=== PATIENT | male | born 1935 | race Asian ===

== ENCOUNTER 2019-08-01 18:47 | Inpatient (IN) | payer MEDICARE, MEDICAID ==
[2019-08-01 21:59] VITALS: BP 121/51
[2019-08-01] MEDS ORDERED: Magnesium Hydroxide (MOM) 30 mL UDC PO PRN (22:00)
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
--- NOTE | 2019-08-03 08:23 | Progress Notes ---
DATE: SUBJECTIVE: Chart reviewed and the patient interviewed. Also discussed the patient's condition with the staff and reviewed records and labs. The patient is still extremely agitated and the patient is still in irritable and angry mood. The patient also is still yelling and screaming in the Thai language, was difficult to understand. The patient also is still pacing up and down the unit in angry mood and gets aggressive and agitated with peers and with staff. Otherwise, the patient is taking Risperdal with no side effects. ASSESSMENT: The patient is still agitated and aggressive and still can be dangerous to others and also considered to be gravely disabled with his confusion. TREATMENT PLAN: Continue monitoring his behavior and his condition closely. Also, we will increase Risperdal to 0.5 mg twice a day and we will continue to follow up closely. JOB# [id number]
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
--- NOTE | 2019-08-05 18:57 | Progress Notes ---
DATE: 08/05/2019 SUBJECTIVE: Chart was reviewed and the patient interviewed. Also discussed the patient's condition with the staff and reviewed records and labs. The patient is still yelling and screaming and easily irritable. The patient also is still paranoid and he is still easily agitated. The patient also still mumbles in Indonesian language and difficult to follow simple instructions. The patient also has been refusing to take medications and language barrier is an issue. Otherwise, the patient is sleeping slightly better. ASSESSMENT: The patient is still psychotic and agitated. TREATMENT PLAN: Continue monitoring his behavior and condition closely and continue adjusting psychotropic medications and work on his compliance with treatment. JOB# [id number]
--- NOTE | 2019-08-05 21:32 | Progress Notes ---
DATE: 08/05/2019 SUBJECTIVE: The patient seen and examined. The patient is lying in the bed. The patient does not provide a meaningful history. Discussed with nursing staff about their concern. PHYSICAL EXAMINATION: VITAL SIGNS: Temperature 97.6, pulse is 77, respiratory rate 18, blood pressure 120/54. HEENT: No facial asymmetry. NECK: Supple, no JVD. HEART: Regular. CHEST AND LUNGS: Equal in expansion, no wheezing. ABDOMEN: Soft. No guarding, no rigidity. Bowel sounds are present. No palpable mass. EXTREMITIES: No edema. NEUROLOGIC: Alert, awake, follows commands. Decreased power throughout the upper and lower extremity noted. CLINICAL IMPRESSION: 1. Hypertension. 2. Dementia. 3. Psychiatric disorder. 4. Degenerative joint disease. 5. Cerebral ataxia. 6. Fall risk. 7. Decline in self-care and mobility. PLAN: 1. Monitor blood pressure. 2. Psych followup. 3. Fall precautions. 4. General nursing care. 5. Monitor blood pressure. 6. __. 7. Chronic disease management. 8. Medication management. 9. Symptoms management. 10. Care plan reviewed and discussed with staff. JOB# [id number]
--- NOTE | 2019-08-05 22:52 | Progress Notes ---
DATE: 08/04/2019 SUBJECTIVE: Chart reviewed and the patient interviewed. Also discussed the patient's condition with the staff and reviewed records and labs. The patient is still agitated and restless. The patient also is still yelling and screaming for no reasons. He also is still in angry mood and banging on a Layla chair and even on the edge of his bed banging on the side rails. He also is still in angry mood and had difficulty redirecting him. Otherwise, the patient is compliant with taking his medications with no side effects of medications. ASSESSMENT: The patient is still psychotic and agitated. TREATMENT PLAN: Continue to work on behavioral modification and also Risperdal was increased to 0.5 mg twice a day and continue adjusting the dose. Also, continue to work on his impulsivity and his anger. JOB# [id number]
--- NOTE | 2019-08-06 19:02 | Progress Notes ---
DATE: SUBJECTIVE: Chart was reviewed and the patient interviewed. Also discussed the patient's condition with the staff and reviewed records and labs. The patient is still hyperverbal and is still yelling and screaming in [place] language with words difficult to understand. The patient also is still easily agitated and easily irritable and have difficulty communicating because of language barrier. The patient also still has mood swings and at times calm and others he is angry and irritable. Also seems to be confused. The patient is also refusing to take medications for no apparent reason. ASSESSMENT: The patient is still confused and agitated. TREATMENT PLAN: Continue to monitor behavior and condition closely. Also, continue working on his irritability and poor impulse control and adjusting psychotropic medications. [facility]# [id number]
--- NOTE | 2019-08-07 11:57 | Diagnostic Imaging Report ---
Portable chest x-ray HISTORY: Fever The heart appears enlarged. Atherosclerotic calcification seen in the aorta. A linear density is seen within the right perihilar region. The finding may be associated with scarring or subsegmental atelectasis. No other focal processes. Old right rib fractures are seen. IMPRESSION: 1. Linear density within the right perihilar region which may be associated with subsegmental atelectasis or scarring. 2. Cardiomegaly with atherosclerotic vascular changes 3. Old right rib fractures
--- NOTE | 2019-08-08 00:48 | Progress Notes ---
DATE: 08/07/2019 SUBJECTIVE: The patient seen and examined. The patient spiked fever yesterday 101, this morning is afebrile. The patient speaks only Japanese as well as the patient has advanced age, unable to get meaningful history. Discussion with nursing staff, there was no apparent coughing or any hematuria. The patient is lying comfortably, though the patient unable to eat fairly well. PHYSICAL EXAMINATION: VITAL SIGNS: Temperature 98.9, pulse is 80, respiratory rate 18, blood pressure 114/64. HEENT: No facial asymmetry. Oropharynx is noncongested. Poor dentition noted. NECK: Supple, no JVD. HEART: Both heart sounds are regular. CHEST AND LUNGS: Equal in expansion, no expiratory wheezing. ABDOMEN: Soft. Bowel sounds present. No palpable mass. EXTREMITIES: No edema, no calf tenderness. MEDICATIONS: Medication admission record has been reviewed. CLINICAL IMPRESSION: 1. New onset of fever, etiology needs to determine. No apparent source. Currently, the patient is afebrile. Workup has been ordered. 2. Hypertension. 3. Psychiatric disorder. 4. Dementia. 5. History of craniotomy and brain tumor removal. 6. High risk for fall. PLAN: 1. CBC, CMP, urinalysis and chest x-ray has been requested in order to evaluate the patient's fever. 2. We will hold antibiotic since the source is not clear. 3. Psych medication and psych followup. 4. Monitor blood pressure. 5. Continue antihypertensive medicine. 6. Fall precautions. 7. General nursing care. 8. We will give further recommendations once the patient's lab data are available. JOB# [id number]
--- NOTE | 2019-08-08 09:51 | Progress Notes ---
DATE: 08/07/2019 SUBJECTIVE: Chart reviewed and the patient interviewed. Also discussed the patient's condition with the staff and reviewed records and labs. The patient still has periods of agitation and irritability, but seems to be slightly calmer than before. Also, yesterday, the patient had low-grade fever, but it is getting better today after he took Tylenol and his temperature today is 98.9. The patient also still needs redirections and still has problem with language barrier. Otherwise, the patient is compliant with taking his medications with no side effects of medications. ASSESSMENT: The patient is still agitated and needs lots of redirections. TREATMENT PLAN: Continue to monitor behavior and condition closely. Also, continue adjusting psychotropic medications and work on his behavior. JOB# [id number]
[2019-08-08] MEDS: Sulfamethoxazole/TMP 800/160mg Tab PO SCH (17:07)
--- NOTE | 2019-08-08 18:12 | Progress Notes ---
DATE: 08/08/2019 SUBJECTIVE: The patient seen and examined. The patient is lying in the bed. The patient does not provide a meaningful history. Discussed with nursing staff about their concerns. The patient continues to remain afebrile. CBC, CMP, chest x-ray has been requested along with urinalysis, which I do not have for my review. PHYSICAL EXAMINATION: VITAL SIGNS: Temperature 98.8, pulse is 100, respiratory rate 18, blood pressure 119/70. HEENT: Poor dentition. No oral lesions. NECK: Supple, no JVD, no lymphadenopathy or thyromegaly. HEART: Both heart sounds are regular. CHEST AND LUNGS: Equal in expansion, no expiratory wheezing. ABDOMEN: Soft. EXTREMITIES: No edema. CLINICAL IMPRESSION: 1. Fever, currently remained afebrile. Workup has been ordered. Reports are unavailable. 2. Psychotic disorder. 3. History of cerebrovascular accident. 4. History of cerebellar tumor. 5. Hypertension. 6. Fall risk. 7. Ataxia. 8. Dementia. 9. History of craniotomy for cerebellar tumor removal. PLAN: Await for CBC, CMP, urinalysis. Chest x-ray is not indicative of pneumonitis. The patient remained afebrile. We will hold treatment right now since we do not have any clear-cut source of the fever and the patient is currently afebrile. Continue to provide antihypertensive medicine with fall precautions, general nursing care, nutritional support. We will continue to follow this patient during the stay in the hospital. JOB# [id number]
--- NOTE | 2019-08-08 22:58 | Progress Notes ---
DATE: 08/08/2019 DATE OF SERVICE: 08/08/2019 Chart reviewed and the patient interviewed. Also discussed the patient's condition with the staff and reviewed records and labs. The patient is still easily agitated and easily irritable. The patient last night slept only for 4 hours, then woke up calling family members name, waking up other patients. He is still restless and he still needs lots of redirections and easily agitated. Also, still having difficulty following with staff directions, which might be because of language barrier. The patient also still disheveled and still needs prompt instructions regarding his ADLs. Otherwise, the patient seems to be more compliant with taking his medications with no side effects. ASSESSMENT: The patient is still agitated and aggressive, but seems to be less than before. TREATMENT PLAN: Continue Risperdal same dose and continue adjusting medications and working on behavioral modification. JOB# [id number]
[2019-08-09] MEDS: Sulfamethoxazole/TMP 800/160mg Tab PO SCH ×2 (08:54→16:24)
--- NOTE | 2019-08-09 23:04 | Progress Notes ---
DATE: 08/09/2019 SUBJECTIVE: The patient seen and examined. The patient is lying in the bed. The patient is currently sedated because the patient was agitated, which did require the patient to have Ativan and Ambien. The patient is currently placed on p.o. antibiotic for UTI. OBJECTIVE: VITAL SIGNS: Temperature 99.5, pulse 91, respiratory rate 19, blood pressure 117/60. HEENT: No facial asymmetry. NECK: Supple. HEART: Regular. LUNGS: Clear. ABDOMEN: Soft. EXTREMITIES: No edema. CLINICAL IMPRESSION: 1. Urinary tract infection. 2. Fever. 3. Psychotic disorder. 4. Dementia. 5. Degenerative joint disease. 6. Hypertension. 7. Fall risk. PLAN: 1. Continue antibiotic as prescribed. 2. Monitor blood pressure. 3. Fall precautions. 4. Nutritional support. 5. General nursing care. 6. Follow lab. 7. We will continue to follow this patient during the stay in the hospital. Care plan has been reviewed and discussed with staff. JOB# [id number]
--- NOTE | 2019-08-09 23:04 | Progress Notes ---
DATE: 08/09/2019 DATE OF SERVICE: 08/09/2019 SUBJECTIVE: Chart was reviewed and the patient interviewed. Also discussed the patient's condition with the staff and reviewed records and labs. The patient seems to be slightly calmer than before. The patient is less irritable and less agitated, but he is still demanding and is still confused and hyperverbal and hypertalkative. The patient was still having severe mood swings and have difficulty following directions, which most probably because of language barrier. Otherwise, the patient is compliant with taking his medications with no side effects of medications. ASSESSMENT: The patient is still confused and agitated, but showing some improvement. TREATMENT PLAN: We will increase Risperdal to 1 mg twice a day and we will add trazodone in a dose of 25 mg at bedtime. Also, continue to monitor behavior and condition closely. Also, working on behavioral modification. Discussed with program administrator of [facility] the possibility of patient returning back there and they are going to evaluate the patient when closer to his completion of treatment. JOB# [id number]
--- NOTE | 2019-08-10 07:31 | Progress Notes ---
DATE: 08/10/2019 SUBJECTIVE: Chart reviewed and the patient interviewed. Also discussed the patient's condition with the staff and reviewed records and labs. The patient is still confused, but he seems to be less agitated and less irritable. The patient also seems to be slightly easier to redirect him. The patient also slept better last night since I added trazodone to his medications. He also is compliant with taking his medications with no side effects of medications. ASSESSMENT: The patient is still confused, but seems to be less agitated. TREATMENT PLAN: Continue to monitor behavior and condition closely. Also, working on behavior modification as well as adjusting psychotropic medications. JOB# [id number]
[2019-08-10] MEDS: Sulfamethoxazole/TMP 800/160mg Tab PO SCH ×2 (08:55→17:11)
--- NOTE | 2019-08-10 10:12 | Progress Notes ---
DATE: 08/10/2019 SUBJECTIVE: The patient seen and examined. The patient is lying in the bed. Discussed with nursing staff. The patient had 100% of his breakfast. The patient becomes more agitated in the afternoon. The patient currently does not provide a meaningful history. OBJECTIVE: VITAL SIGNS: Temperature 97.4, pulse 74, respiratory rate 18, blood pressure 115/62. HEENT: Poor dentition. NECK: Supple. No JVD. HEART: Regular. CHEST AND LUNGS: Equal in expansion. No expiratory wheezing. ABDOMEN: Soft. Bowel sounds present. No palpable masses. EXTREMITIES: No edema. NEUROLOGIC: Alert, awake, following commands. MEDICATIONS: Admission record reviewed. CLINICAL IMPRESSION 1. Urinary tract infection. 2. Fever, resolved. 3. Psychiatric disorder. 4. Hypertension. 5. Dementia. 6. High risk for fall. 7. Degenerative joint disease. 8. Debility. 9. Decline in self-care and mobility. PLAN: 1. P.o. antibiotic for urinary tract infection. 2. Monitor vital signs. 3. Antihypertensive medicine. 4. Psych followup. 5. General nursing care. 6. Fall precaution. 7. Nutritional support. 8. Care plan reviewed and discussed with staff. JOB# [id number]
[2019-08-11] MEDS: Sulfamethoxazole/TMP 800/160mg Tab PO SCH ×2 (09:18→17:18)
--- NOTE | 2019-08-11 20:02 | Progress Notes ---
DATE: 08/11/2019 SUBJECTIVE: The patient seen and examined. The patient is lying in the bed. Discussed with nursing staff about their consent. The patient has remained hemodynamically stable. The patient is afebrile. The patient is able to eat. PHYSICAL EXAMINATION: VITAL SIGNS: Temperature 97, pulse is 77, respiratory rate 18, blood pressure 115/72. HEENT: No facial asymmetry. Poor dentition noted. NECK: Supple, no JVD. HEART: Regular. CHEST AND LUNGS: Equal in expansion, no expiratory wheezing. ABDOMEN: Soft. Bowel sounds present. No palpable masses. EXTREMITIES: No edema. NEUROLOGIC: Alert, awake, follows commands. Decreased power throughout the upper and lower extremity noted. CLINICAL IMPRESSION: 1. Urinary tract infection. 2. Hypertension. 3. Fall risk. 4. Status post cerebellar tumor removal. 5. Gait disturbances. 6. Psychotic disorder. 7. Degenerative joint disease. 8. High risk for fall. PLAN: 1. P.o. antibiotic as prescribed. 2. Psych medication. 3. Monitor blood pressure. 4. Fall precautions. 5. General nursing care. 6. Symptoms management. 7. Medication management. We will continue to follow this patient during the stay in the hospital. JOB# [id number]
[2019-08-12] MEDS: Sulfamethoxazole/TMP 800/160mg Tab PO SCH ×2 (10:00→17:16)
--- NOTE | 2019-08-12 21:16 | Progress Notes ---
DATE: 08/12/2019 SUBJECTIVE: The patient seen and examined. The patient is lying in the bed. Discussed with staff about their concerns. The patient was able to eat fairly well. The patient does not have any chest pain or any shortness of breath though the patient does not provide a meaningful history. The patient was able to eat 100% of his lunch and breakfast. PHYSICAL EXAMINATION: VITAL SIGNS: Temperature 98, pulse is 78, respiratory rate was 18, blood pressure 130/70. HEENT: No facial asymmetry. No oral lesions noted. NECK: Supple, no JVD, no lymphadenopathy or thyromegaly. HEART: Regular. CHEST AND LUNGS: Equal in expansion with expiratory wheezing. ABDOMEN: Soft. Bowel sounds present. No palpable mass. EXTREMITIES: No edema. NEUROLOGIC: Alert, awake, follows command. DIAGNOSTIC DATA: MAR is reviewed. CLINICAL IMPRESSION: 1. Urinary tract infection, on p.o. antibiotic. 2. Hypertension. 3. High risk for fall. 4. Status post cerebellar tumor removal. 5. Dementia. 6. Degenerative joint disease. 7. Psychotic disorder. PLAN: 1. Continue the current antibiotic for urinary tract infection. 2. Provide fall precautions. 3. General nursing care. 4. Psych medication and psych followup. 5. Continue current treatment plan as prescribed. 6. Symptoms management. 7. Medication management. 8. Care plan reviewed and discussed with staff. JOB# [id number]
[2019-08-13] MEDS: Sulfamethoxazole/TMP 800/160mg Tab PO SCH ×2 (09:05→16:57)
--- NOTE | 2019-08-13 15:48 | Progress Notes ---
DATE: 08/13/2019 SUBJECTIVE: The patient seen and examined. The patient is sitting in a Layla chair. Discussed with nursing staff about their concerns. The patient was able to eat 50% of his meal today. The patient still gets restless at times. Unable to get history from the patient. PHYSICAL EXAMINATION: VITAL SIGNS: Temperature 97, pulse is 75, respiratory rate 18, blood pressure 124/60. Medication admission record is reviewed. HEENT: No facial asymmetry. Poor dentition noted. NECK: Supple, no JVD. HEART: Regular. CHEST AND LUNGS: Equal in expansion, no expiratory wheezing. ABDOMEN: Soft. Bowel sounds present. No palpable mass. EXTREMITIES: No edema. NEUROLOGIC: Alert, awake, follows commands. Decreased power throughout the upper and lower extremities noted. CLINICAL IMPRESSION: 1. Complicated urinary tract infection, on p.o. antibiotic. 2. Fever, resolved. 3. Hypertension. 4. High risk for fall. 5. Status post cerebellar tumor removal. 6. Dementia. 7. Degenerative joint disease. 8. Debility. 9. Fall risk. 10. Decline in self-care, mobility. PLAN: 1. Psych medication. 2. P.o. antibiotic. 3. Fall precaution. 4. General nursing care. 5. PT, OT. 6. We will continue to follow this patient during the stay in the hospital. 7. Care plan reviewed and discussed with staff. JOB# [id number]
--- NOTE | 2019-08-13 17:21 | Progress Notes ---
DATE: 08/11/2019 SUBJECTIVE: Chart was reviewed and the patient interviewed. Also, discussed the patient's condition with the staff and reviewed records and labs. The patient seems to be slightly calmer, but he is still confused and is still agitated. The patient also is still restless, but easy to redirect him. The patient at times wants to be left alone and patient seems to be more depressed lately. Otherwise, the patient is compliant with taking his medications with no side effects of medications. ASSESSMENT: The patient is still confused and is still psychotic. TREATMENT PLAN: Continue to monitor behavior and condition and continue working on behavioral modification. Also, discussed with the defense travel administrator of the facility where the patient lived the possibility of patient returning to the facility and they will interview the patient to assess the appropriateness of him going back there. At the same time, continue to monitor medications and condition closely and continue to follow up. JOB# [id number]
--- NOTE | 2019-08-14 02:47 | Psych Progress Note ---
Psych Progress Note - Intro Date of Progress Note: 08/12/19 - Assessment Assessment: Patient interviewed, case discussed with staff, chart and records were reviewed. Patient is in bed talking to unseen others. Looking around the room and rambling constantly. Cannot redirect patient for interview. Poor eye contact, no cooperation. Pre staff, no agitation. No med side effects noted. - Vitals, I&O Vitals: Vital Signs - 24 hr 08/13/19 08/13/19 08/13/19 06:20 09:06 16:57 Temp 97.0 F HR 75 75 83 RR 20 BP 124/60 124/60 114/63 O2 Sat % 96 08/13/19 08/13/19 17:54 20:35 Temp 97.8 F 98.1 F HR 83 94 RR 20 20 BP 114/63 101/63 O2 Sat % 96 96 - Objective Psych Objective: presents anxious restless in bed with poor eye contact, disorganized, rambling incoherent speech, blunted, internally preoccupied, A&O x 1, insight is impaired. - Plan Plan: cont med titration - Review of Relevant Data Review of Relevant Data: I have reviewed the following items and time nena (where applicable) has been applied. - Medications Current Medications: Current Medications Acetaminophen (Tylenol) 650 mg PO Q4HR PRN PRN Reason: Mild Pain (Scale 1-3) Stop: 09/30/19 21:59 Last Admin: 08/07/19 22:20 Dose: 650 mg Acetaminophen (Tylenol) 650 mg PO Q4H PRN PRN Reason: TEMP ABOVE 100 Stop: 10/06/19 14:55 Last Admin: 08/07/19 16:54 Dose: 650 mg Amlodipine Besylate (Norvasc) 5 mg PO BID [facility] Stop: 10/01/19 08:59 Last Admin: 08/13/19 16:57 Dose: 5 mg Cyanocobalamin (Vitamin B12) 500 mcg PO DAILY [facility] Stop: 10/01/19 08:59 Last Admin: 08/13/19 09:05 Dose: 500 mcg Lorazepam (Ativan) 0.5 mg PO Q4HR PRN; Protocol PRN Reason: Anxiety Stop: 08/31/19 21:59 Last Admin: 08/13/19 20:46 Dose: 0.5 mg Magnesium Hydroxide (Milk Of Magnesia) 30 ml PO HS PRN PRN Reason: Constipation Pyridoxine HCl (Vitamin B6) 100 mg PO DAILY [facility] Stop: 10/01/19 08:59 Last Admin: 08/13/19 09:05 Dose: 100 mg Risperidone (Risperdal) 1 mg PO BID [facility]; Protocol Stop: 10/08/19 08:59 Last Admin: 08/13/19 16:57 Dose: 1 mg Thiamine HCl (Vitamin B1) 100 mg PO DAILY [facility] Stop: 10/01/19 08:59 Last Admin: 08/13/19 09:05 Dose: 100 mg Trazodone HCl (Desyrel) 25 mg PO HS [facility]; Protocol Stop: 10/08/19 20:59 Last Admin: 08/13/19 20:46 Dose: 25 mg Trimethoprim/Sulfamethoxazole (Bactrim Ds) 1 tab PO BID [facility] Stop: 08/15/19 16:59 Last Admin: 08/13/19 16:57 Dose: 1 tab Zolpidem Tartrate (Ambien) 5 mg PO HS PRN PRN Reason: Insomnia Stop: 09/30/19 21:59 Last Admin: 08/09/19 00:14 Dose: 5 mg
--- NOTE | 2019-08-14 02:48 | Psych Progress Note ---
Psych Progress Note - Intro Date of Progress Note: 08/13/19 - Assessment Assessment: Patient interviewed, case discussed with staff, chart and records were reviewed. Patient is relatively unchanged from prior evaluation. Patient is in bed talking to unseen others. Looking around the room and rambling constantly. Appears less anxious and less restless. Cannot redirect patient for interview. Poor eye contact, no cooperation. Pre staff, no agitation. No med side effects noted. - Vitals, I&O Vitals: Vital Signs - 24 hr 08/13/19 08/13/19 08/13/19 06:20 09:06 16:57 Temp 97.0 F HR 75 75 83 RR 20 BP 124/60 124/60 114/63 O2 Sat % 96 08/13/19 08/13/19 17:54 20:35 Temp 97.8 F 98.1 F HR 83 94 RR 20 20 BP 114/63 101/63 O2 Sat % 96 96 - Objective Psych Objective: presents anxious restless in bed with poor eye contact, disorganized, rambling incoherent speech, blunted, internally preoccupied, A&O x 1, insight is impaired. - Plan Plan: cont med titration - Review of Relevant Data Review of Relevant Data: I have reviewed the following items and time nena (where applicable) has been applied. - Medications Current Medications: Current Medications Acetaminophen (Tylenol) 650 mg PO Q4HR PRN PRN Reason: Mild Pain (Scale 1-3) Stop: 09/30/19 21:59 Last Admin: 08/07/19 22:20 Dose: 650 mg Acetaminophen (Tylenol) 650 mg PO Q4H PRN PRN Reason: TEMP ABOVE 100 Stop: 10/06/19 14:55 Last Admin: 08/07/19 16:54 Dose: 650 mg Amlodipine Besylate (Norvasc) 5 mg PO BID [facility] Stop: 10/01/19 08:59 Last Admin: 08/13/19 16:57 Dose: 5 mg Cyanocobalamin (Vitamin B12) 500 mcg PO DAILY [facility] Stop: 10/01/19 08:59 Last Admin: 08/13/19 09:05 Dose: 500 mcg Lorazepam (Ativan) 0.5 mg PO Q4HR PRN; Protocol PRN Reason: Anxiety Stop: 08/31/19 21:59 Last Admin: 11/24/19 20:46 Dose: 0.5 mg Magnesium Hydroxide (Milk Of Magnesia) 30 ml PO HS PRN PRN Reason: Constipation Pyridoxine HCl (Vitamin B6) 100 mg PO DAILY [facility] Stop: 10/01/19 08:59 Last Admin: 08/13/19 09:05 Dose: 100 mg Risperidone (Risperdal) 1 mg PO BID [facility]; Protocol Stop: 10/08/19 08:59 Last Admin: 08/13/19 16:57 Dose: 1 mg Thiamine HCl (Vitamin B1) 100 mg PO DAILY [facility] Stop: 10/01/19 08:59 Last Admin: 08/13/19 09:05 Dose: 100 mg Trazodone HCl (Desyrel) 25 mg PO HS [facility]; Protocol Stop: 10/08/19 20:59 Last Admin: 08/13/19 20:46 Dose: 25 mg Trimethoprim/Sulfamethoxazole (Bactrim Ds) 1 tab PO BID [facility] Stop: 08/15/19 16:59 Last Admin: 08/13/19 16:57 Dose: 1 tab Zolpidem Tartrate (Ambien) 5 mg PO HS PRN PRN Reason: Insomnia Stop: 09/30/19 21:59 Last Admin: 08/09/19 00:14 Dose: 5 mg
[2019-08-14] MEDS: Sulfamethoxazole/TMP 800/160mg Tab PO SCH ×2 (08:27→16:40)
--- NOTE | 2019-08-14 19:44 | Progress Notes ---
DATE: 08/14/2019 SUBJECTIVE: The patient was seen and examined. The patient is lying in the bed. No new event noted by nursing staff. PHYSICAL EXAMINATION: VITAL SIGNS: Temperature 97.6, pulse is 74, respiratory rate 20, and blood pressure 110/60. HEENT: No facial asymmetry. Poor dentition. NECK: Supple. No JVD. HEART: Regular. CHEST AND LUNGS: Equal in expansion. No expiratory wheezing. ABDOMEN: Soft. Bowel sounds present. No palpable mass. EXTREMITIES: No edema. CLINICAL IMPRESSION: 1. Complicated urinary tract infection. 2. Hypertension. 3. Fall risk. 4. Degenerative joint disease. 5. Status post cerebellar tumor removal. 6. Decline in self-care. PLAN: 1. P.o. antibiotic. 2. Fall precautions. 3. Monitor blood pressure. 4. General nursing care. 5. Psych medication. 6. Psych followup. 7. Care plan reviewed and discussed with staff. JOB# [id number]
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
[2019-08-15] MEDS: Sulfamethoxazole/TMP 800/160mg Tab PO SCH (08:41)
--- NOTE | 2019-08-15 11:19 | Progress Notes ---
DATE: PATIENT IDENTIFICATION: An 84-year-old male. SUBJECTIVE: The patient seen and examined. The patient speaks Sami only. Discussed with the patient's daughter about the care plan and the patient's daughter requesting this patient to be discharged. I did discuss with her that she should talk to psychiatrist and someone on the primary at the psych facility. The patient was able to eat around 60-70% of his breakfast. PHYSICAL EXAMINATION: VITAL SIGNS: Temperature 97.6, pulse 84, respiratory rate is 20, blood pressure 100/54. HEENT: No facial asymmetry. NECK: Supple, no JVD. HEART: Regular. CHEST AND LUNGS: Equal in expansion, no expiratory wheezing. ABDOMEN: Soft. Bowel sounds are present. No palpable mass. EXTREMITIES: No edema. NEUROLOGIC: The patient is alert, awake, follows commands. No gross neuro deficits noted. CLINICAL IMPRESSION: 1. Hypertension, currently running low normal. 2. Psychotic disorder. 3. Dementia. 4. Degenerative joint disease. 5. History of cerebellar tumor removal. 6. Decline in self-care, mobility. PLAN: In the view of his low blood pressure, we will bring down his Norvasc to 5 mg daily. Continue to monitor blood pressure, fall precautions, general nursing care along with psych medication and psych followup. Care plan has been reviewed and discussed with staff. JOB# [id number]
--- NOTE | 2019-08-16 09:54 | Progress Notes ---
DATE: SUBJECTIVE: Chart was reviewed and the patient interviewed. Also discussed the patient's condition with the staff, and reviewed records and labs. The patient is still suspicious and is still paranoid, but less agitated and less irritable. The patient also is still confused and needs lots of redirections. He also still has difficulty following directions at times. Otherwise, decreased yelling and screaming. Also, is compliant with taking medications with no side effects. I discussed with the configuration management administrator of [facility], where the patient lives, the patient's discharge plans and waiting for [facility] to evaluate the patient to decide if they will take him back or we will need to place him somewhere else. ASSESSMENT: The patient is still confused, but seems to be less agitated. TREATMENT PLAN: Continue to monitor behavior and condition closely. Also, continue adjusting psychotropic medications and work on discharge plans. JOB# [id number]
--- NOTE | 2019-08-16 20:24 | Progress Notes ---
DATE: SUBJECTIVE: Chart was reviewed and the patient interviewed. Also discussed the patient's condition with the staff and reviewed the records and labs. The patient is still confused and is disoriented. The patient also still needs redirections and needs reassurance. Also, at times seems to be talking to himself, but decreased aggressive behavior and decreased agitation. The patient also is compliant with taking his medications with no side effects of medications. ASSESSMENT: The patient is calmer, but still confused. TREATMENT PLAN: Continue to monitor his behavior and his condition closely. Also waiting to hear from [facility] if they will take him or if the patient can go to a different facility. At the same time, we will continue current treatment and medications and we will continue to follow up. JOB# [id number]
--- NOTE | 2019-08-17 01:36 | Progress Notes ---
DATE: 08/16/2019 SUBJECTIVE: The patient was seen and examined. The patient is lying in the bed. The patient has remained afebrile. The patient's blood pressure is better than yesterday since ____. Norvasc has been decreased. PHYSICAL EXAMINATION: GENERAL: The patient is lying comfortably. VITAL SIGNS: Temperature 97.8, pulse is 70, respiratory rate is 18, blood pressure 113/70. HEENT: No facial asymmetry. NECK: Supple, no JVD. HEART: Regular. CHEST AND LUNGS: Equal in expansion, no expiratory wheezing. ABDOMEN: Soft. Bowel sounds present. No palpable mass. EXTREMITIES: No edema. CLINICAL IMPRESSION: 1. Urinary tract infection, resolved. 2. Fever, resolved. 3. Hypertension, better controlled. 4. Psychotic disorder. 5. Dementia. 6. Degenerative joint disease. 7. Gait disturbances. 8. High risk for fall. PLAN: 1. PT, OT. 2. Monitor blood pressure. 3. Fall precautions. 4. General nursing care. 5. Psych medication. 6. Psych followup. 7. We will continue to follow this patient during the stay in the hospital. JOB# [id number]
--- NOTE | 2019-08-17 21:30 | Progress Notes ---
DATE: 08/17/2019 SUBJECTIVE: Chart was reviewed and the patient interviewed. Also discussed the patient's condition with the staff and reviewed records and labs. The patient is less agitated and also seems to be less confused. Also trying to interact with myself, but because of language barrier, it is difficult to interact, but his affect is brighter and he seems to be calmer and smiling appropriately. The patient also denies any intention to harm himself or others and easier to redirect him. ASSESSMENT: The patient is calmer and less agitated. TREATMENT PLAN: I spoke with patient's daughter yesterday and explained to her the patient's condition and the medications and at the end, we decided to decrease Risperdal to 0.25 mg twice a day and to change Seroquel to be p.r.n. doses only. It seems that the patient is less psychotic and not as sedated. We will continue same dose with plan to try to discharge the patient to [facility] if they are accepting back and we will continue to follow up. JOB# [id number]
--- NOTE | 2019-08-18 13:14 | Progress Notes ---
DATE: 08/18/2019 SUBJECTIVE: The patient seen and examined. The patient is eating his meal. The patient will be discharged today as per nursing staff. No new event. PHYSICAL EXAMINATION: VITAL SIGNS: Temperature 98, pulse is 70, respiratory rate 18, blood pressure 136/77. HEENT: No facial asymmetry. NECK: Supple, no JVD. HEART: Regular. CHEST AND LUNGS: Equal in expansion, no expiratory wheezing. ABDOMEN: Soft. Bowel sounds present. No palpable mass. EXTREMITIES: No edema. CLINICAL IMPRESSION: 1. Hypertension. 2. High risk for fall. 3. Gait disturbances. 4. History of cerebellar tumor removal. 5. Degenerative joint disease. 6. Dementia. 7. Psychotic disorder. 8. Decline in self-care and mobility. PLAN: Currently the patient is medically stable. At this time, continue to provide current medication as prescribed along with PT, OT and fall precautions. Psych medication and psychiatric evaluation as per psychiatrist. JOB# [id number]
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
== END 2019-08-19 10:57 | DRG 885 ==
LOC: GERO 21:20
PROVIDERS: ADMIT Psychiatry & Neurology Psychiatry; ATTEND Psychiatry & Neurology Psychiatry
DX: F29 Unspecified psychosis not due to a substance or known physiological condition (principal); F01.51 Vascular dementia, unspecified severity, with behavioral disturbance; G11.9 Hereditary ataxia, unspecified; N39.0 Urinary tract infection, site not specified; I10 Essential (primary) hypertension; M19.90 Unspecified osteoarthritis, unspecified site; R53.81 Other malaise; Z86.73 Personal history of transient ischemic attack (TIA), and cerebral infarction without residual deficits; Z87.891 Personal history of nicotine dependence
CPT/HCPCS: 71045-TC; 83036-90; 97530; G0410; X3904; Z7610